=== PATIENT | female | born 1935 | race Caucasian/White ===

== ENCOUNTER 2017-06-04 13:19 | Emergency (ER) | payer MEDICARE, OTHER ==
[2017-06-04 13:55] LABS: BASOPHILS 0.3 % (0-2); EOSINOPHILS 0.6 % (0-7); HEMATOCRIT 39.5 % (36.0-48.0); HEMOGLOBIN 13.6 g/dL (12-16); IMMATURE GRANULOCYTES 0.3 % (0-5); LYMPHOCYTES 16.6 % (15-50); MCHC 34.4 g/dL (31.0-37.0); MEAN PLATELET VOLUME 8.9 fL (7.4-10.4); NEUTROPHILS 73.2 % (40-80); PLATELET COUNT 259 10x3/uL (130-400); RBC 4.39 10x6/uL (4.00-5.40); RDW 12.5 % (11.5-14.5); WBC 6.9 10x3/uL (4.8-10.8)
[2017-06-04 14:12] LABS: ALBUMIN 3.6 g/dL (3.4-5.0); ANION GAP 16.6 mmol/L (8-16); BILIRUBIN - TOTAL 0.49 mg/dL (0.2-1.3); CALCIUM 9.3 mg/dL (8.5-10.1); CARBON DIOXIDE 24.7 mmol/L (21.0-32.0); CREATININE - SERUM 0.9 mg/dL (0.6-1.3); POTASSIUM - SERUM 3.3 mmol/L (3.5-5.1); PROTEIN - SERUM 7.4 g/dL (6.4-8.2)
[2017-06-04 15:13] LABS: APPEARANCE CLEAR (CLEAR); BILIRUBIN NEGATIVE (NEGATIVE); COLOR YELLOW (YELLOW); GLUCOSE NEGATIVE (NEGATIVE); KETONE NEGATIVE (NEGATIVE); NITRITE NEGATIVE (NEGATIVE); PROTEIN NEGATIVE (NEGATIVE); SPECIFIC GRAVITY 1.005 (1.005-1.020); UROBILINOGEN NORMAL (NORMAL)
[2017-08-01 17:04] VITALS: BMI 23.3
== END 2017-06-04 15:52 | disposition home or self-care (01) ==
LOC: D.ER 13:19
PROVIDERS: Emergency Medicine
DX: S39.011A Strain of muscle, fascia and tendon of abdomen, initial encounter (principal); X58.XXXA Exposure to other specified factors, initial encounter; Y93.89 Activity, other specified; Y92.029 Unspecified place in mobile home as the place of occurrence of the external cause; E87.6 Hypokalemia; K59.00 Constipation, unspecified

== ENCOUNTER 2017-06-15 16:18 | Inpatient (IN) | payer MEDICARE, OTHER ==
[~2017-06-15] VITALS: Ht 167.6 cm; Wt 72.7 kg
[2017-06-15] MEDS ORDERED: GLUCOSAMINE & C1 CAP PO (23:32)
[2017-06-15] MEDS ORDERED: CALCIUM 600+D T1 TA1 PO (23:32)
[2017-06-15] MEDS ORDERED: FOLBIC RF TABL1 EACH PO (23:33)
[2017-06-15] MEDS ORDERED: VITAMIN E600 UNIT PO (23:36)
[2017-06-15] MEDS ORDERED: ASCORBIC ACID500 MG (23:37)
[2017-06-15 23:39] VITALS: BP 125/76; Ht 167.6 cm; Wt 72.7 kg
[2017-06-16 00:56] VITALS: BP 143/76
--- NOTE | 2017-06-16 03:48 | NUR ---
ASSESSED AT THE TIME OF ARRIVAL FROM THE ER. SHE IS ALERT AND ORIENTED, ABLAE TO VERBALIZE NEEDS. SHE IS NOT COMPLAINING OF PAIN SINCE SHE CAME UP FROM THE ER. SHE HAS STATED WHEN SHE HAS PAIN IT IS ALL DOWN HER RIGHT LEG. WE WILL GET HER A BSC TO SEE IF SHE WILL BE ABLE TO USE IT WITH HER. ALL CLOTHING HAS BEEN REMOVED AND SHE IS IN A GOWN TO MAKE HER MORE COMFORTABLE. THE BED IS LOW, RAILS UP X'S 2 WITH THE CALL LIGHT AT HAND.
[2017-06-16 04:52] VITALS: BP 132/70
--- NOTE | 2017-06-16 07:10 | NUR ---
REPORT RECEIVED, ASSUMED CARE OF PT. PT RESTING, EASILY AROUSED. L FOREARM IV SALINE LOCKED, DRSG C/D/I. NO NEEDS VOICED AT THIS TIME. BED IN LOWEST POSITION, SIDE RAILS UP X 2, CALL LIGHT WITH REACH.
[2017-06-16 08:36] VITALS: BP 151/79
--- NOTE | 2017-06-16 10:48 | NUR ---
Patient Name: BRENDEN PARDO Admission Status: ER Accout number: [id number] Admission Date: 06-15-2017 : 1935 Admission Diagnosis: Attending: CHRISTOPHER BASHIR Current LOS: 1 Anticipated DC Date: 06-20-2017 Planned Disposition: Home Primary Insurance: MEDICARE A & B Discharge Planning Comments: CM MET WITH PATIENT AND SON (BEATRIZ) REGARDING D/C NEEDS AND PLANS. PATIENT STATED SHE LIVES ALONE AND HER SON WILL DRIVE HER HOME AT DISCHARGE. PATIENT STATED SHE HAS 2 STEPS TO ENTER HOME AND NO STAIRS INSIDE. PATIENT IS INDEPENDENT WITH HER CARE AND HAS A WALKER AT HOME. PATIENTS PCP IS DR. CALVERT AND PHARMACY IS [facility] AT THE [facility]. CM WILL CONTINUE TO FOLLOW PATIENT WITH D/C NEEDS AND PLANS. PATIENTS SON WANTS TO SEE DOCTOR BEFORE DECIDING ON HOME HEATLH. PCP DR. ENRIKE MANN AT [facility] [phone] BEATRIZ (SON) [phone] Chief Transfer And Pumphouse Operator: Amanda Souza Is the patient Alert and Oriented? Yes 0 * How many steps to enter\exit or inside your home? 2 w/rails 0 * PCP DR. CALVERT 0 * [facility] 0 * Preadmission Environment Home Alone 0 * ADLs Independent 0 * Equipment Walker 0 * List name and contact numbers for known caregivers / representatives who currently or will assist patient after discharge: BEATRIZ PARDO (SON) [phone] 0 * Community resources currently utilized None 0 * Additional services required to return to the preadmission environment? Yes 0 * Can the patient safely return to the preadmission environment? Yes 0 * Has this patient been hospitalized within the prior 30 days at any hospital? No 0 Grand Total: 0
[2017-06-16 11:27] LABS: BASOPHILS 0.1 % (0-2); EOSINOPHILS 0.1 % (0-7); HEMATOCRIT 38.6 % (36.0-48.0); IMMATURE GRANULOCYTES 0.9 % (0-5); LYMPHOCYTES 4.4 % (15-50); MCH 30.5 pg (26.0-34.0); MCHC 33.7 g/dL (31.0-37.0); MCV 90.6 fL (80.0-100.0); MEAN PLATELET VOLUME 8.9 fL (7.4-10.4); MONOCYTES 9.5 % (2-11); RBC 4.26 10x6/uL (4.00-5.40); RDW 13.4 % (11.5-14.5); WBC 16.2 10x3/uL (4.8-10.8)
[2017-06-16 11:30] LABS: PLATELET COUNT 433 10x3/uL (130-400)
[2017-06-16 11:41] LABS: ALBUMIN 2.3 g/dL (3.4-5.0); ANION GAP 13.2 mmol/L (8-16); BILIRUBIN - TOTAL 0.86 mg/dL (0.2-1.3); CALCIUM 9.7 mg/dL (8.5-10.1); CARBON DIOXIDE 26.8 mmol/L (21.0-32.0); CREATININE - SERUM 1.1 mg/dL (0.6-1.3); PROTEIN - SERUM 7.3 g/dL (6.4-8.2)
[2017-06-16 12:21] VITALS: BP 135/61
--- NOTE | 2017-06-16 13:49 | NUR ---
NUTRITION MONITORING AND AND EVAL CHART REVIEWED, PT VISIT. ASSESSED AT LOW NUTRITIONAL RISK PER NURSING SCREEN. CHANGED DIET TO REG NO INDICATION OF HEART DZ IN H&P. RD FOLLOWING
--- NOTE | 2017-06-16 15:49 | NUR ---
PT LEFT FLOOR FOR CT
[2017-06-16 15:56] VITALS: BP 105/73
--- NOTE | 2017-06-16 16:08 | NUR ---
PT RETURNED TO FLOOR FROM CT
[2017-06-16 20:00] VITALS: BP 128/62
[2017-06-17] VITALS: BP 107/75
[2017-06-17 04:00] VITALS: BP 125/65
[2017-06-17 07:22] LABS: BASOPHILS 0.1 % (0-2); EOSINOPHILS 0.1 % (0-7); HEMATOCRIT 37.8 % (36.0-48.0); HEMOGLOBIN 12.9 g/dL (12-16); IMMATURE GRANULOCYTES 1.4 % (0-5); LYMPHOCYTES 5.3 % (15-50); MCH 30.5 pg (26.0-34.0); MCHC 34.1 g/dL (31.0-37.0); MCV 89.4 fL (80.0-100.0); MEAN PLATELET VOLUME 8.9 fL (7.4-10.4); MONOCYTES 9.4 % (2-11); NEUTROPHILS 83.7 % (40-80); PLATELET COUNT 434 10x3/uL (130-400); RBC 4.23 10x6/uL (4.00-5.40); RDW 13.2 % (11.5-14.5); WBC 18.2 10x3/uL (4.8-10.8)
[2017-06-17 07:39] LABS: ANION GAP 14.1 mmol/L (8-16); BILIRUBIN - TOTAL 1.31 mg/dL (0.2-1.3); CALCIUM 9.7 mg/dL (8.5-10.1); CARBON DIOXIDE 25.2 mmol/L (21.0-32.0); POTASSIUM - SERUM 3.3 mmol/L (3.5-5.1); PROTEIN - SERUM 6.9 g/dL (6.4-8.2)
--- NOTE | 2017-06-17 08:00 | NUR ---
POTASSIUM 3.3 - GAVE 40 MEQ POTASSIUM TAB PO PER ELECTROLYTE PROTOCOL. RECHECK POTASSIUM FOR 1200. SET PT UP WITH BREAKFAST TRAY. PT C/O RIGHT HIP PAIN 03/09. GAVE MORPHINE 2 MG IV PUSH. NO OTHER NEEDS. WILL CONTINUE TO MONITOR.
[2017-06-17 10:10] VITALS: BP 138/71
[2017-06-17 16:51] VITALS: BP 132/74
--- NOTE | 2017-06-17 18:55 | NUR ---
PATIENT IN BED WITH IV INTACT. NO COMPLAINTS AT THIS TIME. RECIEVED MORPHINE EARLIER FOR PAIN. NOT EATING WELL TODAY. SEEMS TO HAVE A LOT OF PAIN AT TIMES. FAMILY AT BEDSIDE MOST OF THE DAY. PATIENT CALL [facility].
[2017-06-17 20:00] VITALS: BP 132/64; BP 141/69
--- NOTE | 2017-06-17 21:10 | NUR ---
PT C/O RIGHT HIP PAIN 03/09. LEFT FOREARM IV NO LONGER PATENT. RESITED 20G IV TO RIGHT FOREARM AND ADMINISTERED MORPHINE 2MG IV PUSH. REPOSITIONED AND TURNED PT. NO OTHER NEEDS. WILL CONTINUE TO MONITOR.
[2017-06-18] VITALS: BP 138/81; BP 140/69
[2017-06-18 04:00] VITALS: BP 145/58
--- NOTE | 2017-06-18 05:30 | NUR ---
PT CONFUSED THIS SHIFT. HAS TAKEN OFF CLOTHES SEVERAL TIMES. KEEPING PT TURNED TOLERATED. COMPLETE ASSESSMENT PER FLOW-SHEET. WILL CONTINUE TO MONITOR.
[2017-06-18 06:18] LABS: HEMATOCRIT 39.4 % (36.0-48.0); HEMOGLOBIN 12.9 g/dL (12-16); MCH 30.1 pg (26.0-34.0); MCHC 32.7 g/dL (31.0-37.0); MCV 91.8 fL (80.0-100.0); MEAN PLATELET VOLUME 8.8 fL (7.4-10.4); PLATELET COUNT 452 10x3/uL (130-400); RBC 4.29 10x6/uL (4.00-5.40); RDW 13.6 % (11.5-14.5); WBC 21.2 10x3/uL (4.8-10.8)
[2017-06-18 06:50] LABS: ALBUMIN 1.9 g/dL (3.4-5.0); ANION GAP 13.7 mmol/L (8-16); BILIRUBIN - TOTAL 1.52 mg/dL (0.2-1.3); CALCIUM 9.9 mg/dL (8.5-10.1); CARBON DIOXIDE 25.2 mmol/L (21.0-32.0); CREATININE - SERUM 0.9 mg/dL (0.6-1.3); POTASSIUM - SERUM 3.9 mmol/L (3.5-5.1); PROTEIN - SERUM 6.7 g/dL (6.4-8.2)
--- NOTE | 2017-06-18 07:00 | NUR ---
REPORT RECIEVED ASSUMED CARE. PATIENT IN BED WITH IV INTACT. NO COMPLAINTS. CALL LIGHT WITHIN REACH.
[2017-06-18 07:12] LABS: LYMPHOCYTES 6 % (15-50); MONOCYTES 1 % (2-11); NEUTROPHILS 89 % (40-80); PLATELET ESTIMATE INCREASED
--- NOTE | 2017-06-18 08:15 | NUR ---
ASSESSMENT COMPLETE, VS STABLE. PATIENT REFUSES TO EAT BREAKFAST. STRAWBERRY ENSURE GIVEN TO PATIENT. FAMILY AT BEDSIDE. PATIENT IV INTACT. CALL LIGHT WITHIN REACH.
[2017-06-18 08:31] VITALS: BP 124/68
[2017-06-18 11:44] LABS: ERYTHROCYTE SEDIMENTATION RATE 86 mm/hr (0-30)
[2017-06-18 11:47] VITALS: BP 128/67
--- NOTE | 2017-06-18 12:15 | NUR ---
PATIENT SLEEPING WITH EYES CLOSED AT THIS TIME. IV INTACT. REFUSES TO WAKE UP AND EAT LUNCH. CALL LIGHT WITHIN REACH.
--- NOTE | 2017-06-18 13:45 | NUR ---
PATIENT AWAKE AND CONFUSED. IN A LOT OF PAIN. TRIED TO REORIENT PATIENT AND EXPLAIN WHERE SHE IS AND WHY SHE IS HERE. STATED SHE THINKS WE ARE TRYING TO TAKE ADVANTAGE OF HER. EXPLAINED AGAIN THAT SHE IS HERE BECAUSE OF FALLS AND PAIN. PATIENT STATED SHE WANTED TO CALL HER SON. GAVE HER HER PHONE AND PATIENT DIALED THE NUMBER. IV INTACT. EXPLAINED TO PATIENT I WOULD GET HER SOME PAIN MEDS. STATED SHE DIDNT WANT THEM. BA ON. CALL LIGHT WITHIN REACH.
--- NOTE | 2017-06-18 14:30 | NUR ---
PATIENT IN BED CRYING BC SHE IS HURTING. EXPLAINED TO PATIENT I COULD GIVE HER PAIN MEDS. PATIENT AGREED. MORPHINE GIVEN. PATIENT REPOSITIONED. BA ON. CALL LIGHT WITHIN REACH. REFUSED BSCDS.
[2017-06-18 15:51] VITALS: BP 137/80
--- NOTE | 2017-06-18 16:50 | NUR ---
PATIENT IN BED WITH NO COMPLAINTS. STATED BACK IS BETTER. NO CONFUSED ANYMORE. CALL LIGHT WITHIN REACH.
--- NOTE | 2017-06-18 18:00 | NUR ---
PATIENT IV INFILTRATED. REMOVED WITH CATH TIP INTACT. NO COMPLAINTS OF SIGNS OF DISTRESS. STATED BACK PAIN IS FEELING BETTER. CALL LIGHT WITHIN REACH.
--- NOTE | 2017-06-18 18:52 | NUR ---
ANGELO RN IN ROOM TRYING TO START IV AT THIS TIME. PATIENT TOLERATING WITH SMALL AMOUNT OF PAIN. CALL LIGHT WITHIN REACH.
--- NOTE | 2017-06-18 19:30 | NUR ---
PATIENT RESTING IN BED AND DENIES NEEDS AT THIS TIME. BED IN LOWEST POSITION, CALL LIGHT WITHIN REACH, AND BED ALARM ON. ENCOURAGED THE PATIENT TO CALL IF SHE HAS NEEDS.
[2017-06-18 20:00] VITALS: BP 129/66; BP 138/81
[2017-06-19] VITALS: BP 129/66
[2017-06-19 04:00] VITALS: BP 137/81
[2017-06-19 05:48] LABS: BASOPHILS 0.1 % (0-2); EOSINOPHILS 0.2 % (0-7); HEMATOCRIT 36.9 % (36.0-48.0); HEMOGLOBIN 12.3 g/dL (12-16); IMMATURE GRANULOCYTES 5.4 % (0-5); LYMPHOCYTES 5.3 % (15-50); MCH 30.1 pg (26.0-34.0); MCHC 33.3 g/dL (31.0-37.0); MCV 90.2 fL (80.0-100.0); MEAN PLATELET VOLUME 8.9 fL (7.4-10.4); MONOCYTES 7.9 % (2-11); NEUTROPHILS 81.1 % (40-80); PLATELET COUNT 498 10x3/uL (130-400); RBC 4.09 10x6/uL (4.00-5.40); RDW 13.4 % (11.5-14.5); WBC 18.9 10x3/uL (4.8-10.8)
[2017-06-19 05:55] LABS: APPEARANCE CLEAR (CLEAR); BILIRUBIN NEGATIVE (NEGATIVE); COLOR DK YELLOW (YELLOW); GLUCOSE NEGATIVE (NEGATIVE); KETONE NEGATIVE (NEGATIVE); NITRITE NEGATIVE (NEGATIVE); PROTEIN NEGATIVE (NEGATIVE); SPECIFIC GRAVITY 1.015 (1.005-1.020); UROBILINOGEN NORMAL (NORMAL)
[2017-06-19 06:08] LABS: ALBUMIN 1.7 g/dL (3.4-5.0); BILIRUBIN - TOTAL 1.2 mg/dL (0.2-1.3); CARBON DIOXIDE 26.4 mmol/L (21.0-32.0); CREATININE - SERUM 0.9 mg/dL (0.6-1.3); POTASSIUM - SERUM 3.4 mmol/L (3.5-5.1); PROTEIN - SERUM 6.4 g/dL (6.4-8.2)
--- NOTE | 2017-06-19 08:00 | NUR ---
REC'D IN BED AWAKE AND ALERT. RESP EVEN AND UNLABORED WITH NO DISTRESS NOTED. CAN EXPRESS NEEDS AND WANTS. ASSESSMENT COMPLETED. NO C/ONOTED OR VOICED. C/L IN REACH AT BEDSIDE.
[2017-06-19 08:38] VITALS: BP 129/74
--- NOTE | 2017-06-19 10:57 | NUR ---
PT NOTE-PT RESING WITH EYES CLOSED AND RESP EVEN AND UNLABORED. NO FACIAL GRIMACING BOTED. BED ALARM ON FOR SAFETY. CALL LIGHT IN REACH
[2017-06-19 12:38] VITALS: BP 130/76
[2017-06-19 16:16] VITALS: BP 135/72
--- NOTE | 2017-06-19 18:13 | NUR ---
OT NOTE: PT COMPLETED SELF FEEDING WITH TOTAL ASSIST. PT COMPLETED HYGIENE TASK WITH MAX A. PT COMPLETED BED MOB WITH TOTAL ASSIST. THANK YOU, LALA ELDER/Patti
--- NOTE | 2017-06-19 19:55 | NUR ---
ASSISTED PATIENT OFF OF BEDPAN WITH ABHINAV GUEVARA. PATIENT DENIES OTHER NEEDS AT THIS TIME. BED IN LOWEST POSITION, CALL LIGHT WITHIN REACH, AND BED ALARM ON. ENCOURAGED THE PATIENT TO CALL IF SHE HAS NEEDS.
[2017-06-19 23:01] VITALS: BP 130/71
[2017-06-20 01:52] VITALS: BP 135/68
[2017-06-20 06:01] LABS: BASOPHILS 0.4 % (0-2); EOSINOPHILS 0.3 % (0-7); HEMATOCRIT 38.9 % (36.0-48.0); HEMOGLOBIN 12.6 g/dL (12-16); IMMATURE GRANULOCYTES 7.6 % (0-5); MCH 29.9 pg (26.0-34.0); MCHC 32.4 g/dL (31.0-37.0); MEAN PLATELET VOLUME 9.1 fL (7.4-10.4); MONOCYTES 7.3 % (2-11); NEUTROPHILS 77.4 % (40-80); PLATELET COUNT 556 10x3/uL (130-400); RBC 4.21 10x6/uL (4.00-5.40); RDW 13.5 % (11.5-14.5); WBC 17.6 10x3/uL (4.8-10.8)
[2017-06-20 06:07] LABS: MCV 92.4 fL (80.0-100.0)
[2017-06-20 06:31] LABS: ALBUMIN 1.8 g/dL (3.4-5.0); ANION GAP 12.3 mmol/L (8-16); BILIRUBIN - TOTAL 1.31 mg/dL (0.2-1.3); CALCIUM 9.5 mg/dL (8.5-10.1); CARBON DIOXIDE 28.2 mmol/L (21.0-32.0); CREATININE - SERUM 0.9 mg/dL (0.6-1.3); POTASSIUM - SERUM 3.5 mmol/L (3.5-5.1); PROTEIN - SERUM 6.6 g/dL (6.4-8.2)
--- NOTE | 2017-06-20 08:30 | NUR ---
PT STATES SHE DOES NOT LIKE TO EAT ANYTHING RIGHT NOW, AT BED SIDE.
[2017-06-20 08:42] VITALS: BP 139/78
[2017-06-20 11:26] VITALS: BP 151/78
--- NOTE | 2017-06-20 11:48 | NUR ---
REST QUIETLY IN BED, CALL LIGHT IN REACH.
--- NOTE | 2017-06-20 12:31 | NUR ---
Rehab Prescreening Consult recieved and the patient was visited. She was lying in the bed and saying she needed to have a BM. She was confused and disoriented. She denies being in the hospital rather she is here with her 87 yr old mother who has fallen. When attempted to reorient she became frustrated. I am unsure she could follow direction enough to benefit from rehab at this time. Discussed with the CM Amanda Miranda RN. Rehab will continue to follow. Lili Oconnell RN Clinical Liaison, Rehab
--- NOTE | 2017-06-20 12:45 | NUR ---
ASSISTED PT WITH BEDPAN.
--- NOTE | 2017-06-20 15:10 | NUR ---
PT TOOK OFF OXYGEN AND REFUSED TO PUT BACK ON.
[2017-06-20 16:10] VITALS: BP 142/68
--- NOTE | 2017-06-20 17:58 | NUR ---
PT TAKE OUT IV AND COMBATIVE.
--- NOTE | 2017-06-20 18:16 | NUR ---
RESTART IV FOR PT, GOOD BLOOD RETURN, PT TOLERATED WELL.
[2017-06-20 20:00] VITALS: BP 137/61
--- NOTE | 2017-06-20 20:05 | NUR ---
PATIENT RESTING IN BED WITH NO VISIBLE SIGNS OF DISTRESS. REPOSITIONED PATIENT WITH RADHA DAVISON. PATIENT DENIES OTHER NEEDS AT THIS TIME. BED IN LOWEST POSITION, CALL LIGHT WITHIN REACH, AND BED ALARM ON. ENCOURAGED THE PATIENT TO CALL IF SHE HAS NEEDS.
[2017-06-21] VITALS: BP 151/84
[2017-06-21 04:00] VITALS: BP 139/71
[2017-06-21 05:37] LABS: BASOPHILS 0.2 % (0-2); EOSINOPHILS 0.4 % (0-7); HEMATOCRIT 37.6 % (36.0-48.0); HEMOGLOBIN 12.4 g/dL (12-16); IMMATURE GRANULOCYTES 7.6 % (0-5); LYMPHOCYTES 6.9 % (15-50); MCH 30.2 pg (26.0-34.0); MCV 91.5 fL (80.0-100.0); MEAN PLATELET VOLUME 9.1 fL (7.4-10.4); MONOCYTES 7.4 % (2-11); NEUTROPHILS 77.5 % (40-80); PLATELET COUNT 590 10x3/uL (130-400); RBC 4.11 10x6/uL (4.00-5.40); RDW 13.6 % (11.5-14.5); WBC 19.5 10x3/uL (4.8-10.8)
[2017-06-21 06:02] LABS: ALBUMIN 1.7 g/dL (3.4-5.0); ANION GAP 13.9 mmol/L (8-16); BILIRUBIN - TOTAL 1.34 mg/dL (0.2-1.3); CARBON DIOXIDE 23.8 mmol/L (21.0-32.0); CREATININE - SERUM 0.8 mg/dL (0.6-1.3); POTASSIUM - SERUM 3.7 mmol/L (3.5-5.1); PROTEIN - SERUM 6.3 g/dL (6.4-8.2)
[2017-06-21 08:45] VITALS: BP 148/76
--- NOTE | 2017-06-21 09:00 | NUR ---
PT WAS RECEIVED FROM RADHA DAMON. PT IS SITTING UP IN [facility]. SHE OFFERS NO COMPLAINTS. SHE STATES WHEN ALL HER TEST ARE DONE THAT SHE IS GOING HOME. I BELIEVE SHE IS WAITING ON HER ECHO TO BE DONE. GEN- AWAKE AND ALERT- LUNGS- CLEAR. HEART- RRR. ABD- SOFT NT. BS+ EXT. NO EDEMA. GOOD STRENGTH BILATERALLY. SALINE LOCK IS PATENT IN LEFT WRIST. BED IS LOW, SIDE RAILS UP X 2 AND CALL LIGHT IN REACH.
--- NOTE | 2017-06-21 10:00 | NUR ---
PT IS SITTING UP IN CHAIR. OFFERS NO COMPLAINTS. SHE IS READY TO GO HOME.
--- NOTE | 2017-06-21 11:55 | NUR ---
PT IS AT BEDSIDE . 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 I TOLD HER HER SON HAD BEEN HERE BUT HE HAD ERRANDS TO RUN SO HE LEFT. SHE STATES THAT SHE COULD ONLY BE HERE UNTIL 12:30.
--- NOTE | 2017-06-21 12:21 | NUR ---
HER RESIDENTIAL PROGRAM DIRECTOR CAME OUT AND STATED THAT PT IS NOT WANTING TO EAT ANYTHING. SHE ASKED THAT WE GET HER ENSURE ORDERED.
[2017-06-21 12:36] VITALS: BP 146/78
--- NOTE | 2017-06-21 12:54 | NUR ---
NUTRITION F/U CHART REVIEWED. NO PO INTAKE RECENT MEALS. NOW ASSESSED AT NUTRITIONAL RISK R/T DX, LOS, POOR PO INTAKE. NUTRITIONAL NEEDS ASSESSED USING IBW. [id number] KCAL (25-30 KCAL/KG). 59-71 GM PROTEIN (1-1.2 GM/KG) PER DAY. WILL ADD ENSURE TO DIET ORDER, PROVIDE DIET, MONITOR PO INTAKE. RD FOLLOWING
--- NOTE | 2017-06-21 15:14 | NUR ---
Rehab Note- Visited with the patient's son at length about patient. The patient continues to be very confused and her son stated she was very combative yesterday. At this time he does not feel that is appropriate or can participate in the required 3hrs of therapy per day in acute rehab. Discussed at length with ROSARIO Patel of patient needing a SNF placement and the son with assistance with this decision. Thank you for this referral! Catrachita Mcallister RN Clinical Liaison, [facility] Rehab
[2017-06-21 16:47] VITALS: BP 154/76
--- NOTE | 2017-06-21 17:52 | NUR ---
PT IS LYING IN BED. SHE REFUSES TO EAT OR DRINK ANYTHING. BED IS LOW. SIDE RAILS UP X 2 AND CALL LIGHT IN REACH.
[2017-06-21 21:36] VITALS: BP 145/63
--- NOTE | 2017-06-21 21:41 | NUR ---
REC'D. IN BED ALERT BUT REMAINS CONFUSED TO PACE TIME AND SITUATION.BED ARME. ANCELMO CONTINUE TO MONITOR FOR ANY CHGES. AND FOLLOW CURRENT PLAN OF CARE.
--- NOTE | 2017-06-22 02:19 | NUR ---
EYES CLOSED RESPIRATIONS WITH EASE AND UNLABORED. SR UP X2 CALL LIGHT WITHIN REACH.
[2017-06-22 05:28] LABS: BASOPHILS 0.2 % (0-2); EOSINOPHILS 0.5 % (0-7); HEMATOCRIT 37.5 % (36.0-48.0); HEMOGLOBIN 12.3 g/dL (12-16); LYMPHOCYTES 8.4 % (15-50); MCH 29.9 pg (26.0-34.0); MCHC 32.8 g/dL (31.0-37.0); MEAN PLATELET VOLUME 8.8 fL (7.4-10.4); MONOCYTES 6.1 % (2-11); NEUTROPHILS 76.8 % (40-80); PLATELET COUNT 689 10x3/uL (130-400); RBC 4.12 10x6/uL (4.00-5.40); RDW 13.5 % (11.5-14.5); WBC 19.9 10x3/uL (4.8-10.8)
[2017-06-22 06:06] LABS: ALBUMIN 1.7 g/dL (3.4-5.0); ALKALINE PHOSPHATASE 125 U/L (46-116); ALT (SGPT) 38 U/L (10-68); CALC OSMOLALITY 278 mosm/kg (275-300); CALCIUM 9.1 mg/dL (8.5-10.1); CARBON DIOXIDE 23.6 mmol/L (21.0-32.0); CHLORIDE - SERUM 104 mmol/L (98-107); CREATININE - SERUM 0.7 mg/dL (0.6-1.3); GLUCOSE 103 mg/dL (74-106); POTASSIUM - SERUM 3.3 mmol/L (3.5-5.1); PROTEIN - SERUM 6.4 g/dL (6.4-8.2); SODIUM 138 mmol/L (136-145); UREA NITROGEN 22 mg/dL (7-18); eGFR NON AFRICAN AMERICAN 85 mL/min (90-120)
[2017-06-22 06:45] VITALS: BP 162/82
--- NOTE | 2017-06-22 09:02 | NUR ---
PT AOX1 RESP EVEN AND NONLABORED PT DENIES NEEDS AT THIS TIME IV TO RIGHT FOREARM PATENT AND INTACT AT THIS TIME SRX2 BED AT LOWEST SETTING CALL LIGHT WITHIN REACH WILL CONTINUE TO MONITOR
[2017-06-22 09:13] VITALS: BP 132/81
[2017-06-22 12:30] VITALS: BP 148/84
--- NOTE | 2017-06-22 15:32 | NUR ---
INCREASED VANCOMYCIN FREQUENCY TO Q12H. TROUGH TODAY WAS 5.5
[2017-06-22 17:39] VITALS: BP 139/77
--- NOTE | 2017-06-22 23:16 | NUR ---
PT VERY CONFUSED AT THIS TIME. DOES NOT WANT ANYONE TO TOUCH HER. MADE SURE HER CALL LIGHT WAS IN REACH. PT REFUSED TO TALK TO ME. BED IN LOWEST POSITION, MAUDE ALARM IN USE AND TURNED ON. SCD'S OFF, PT REFUSES TO LET US PUT THEM BACK ON AT THIS TIME. WILL CONTINUE WITH PLAN OF CARE.
[2017-06-23] VITALS: BP 150/83
[2017-06-23 04:00] VITALS: BP 143/77
[2017-06-23 07:00] LABS: ALBUMIN 1.8 g/dL (3.4-5.0); ANION GAP 18.7 mmol/L (8-16); BILIRUBIN - TOTAL 0.9 mg/dL (0.2-1.3); CALCIUM 9.5 mg/dL (8.5-10.1); CARBON DIOXIDE 19.5 mmol/L (21.0-32.0); CREATININE - SERUM 0.8 mg/dL (0.6-1.3); POTASSIUM - SERUM 4.2 mmol/L (3.5-5.1)
[2017-06-23 07:12] LABS: BASOPHILS 0.2 % (0-2); EOSINOPHILS 0.8 % (0-7); HEMATOCRIT 39.5 % (36.0-48.0); IMMATURE GRANULOCYTES 9.6 % (0-5); LYMPHOCYTES 7.5 % (15-50); MCHC 32.9 g/dL (31.0-37.0); MEAN PLATELET VOLUME 9.2 fL (7.4-10.4); MONOCYTES 5.9 % (2-11); PLATELET COUNT 748 10x3/uL (130-400); RBC 4.34 10x6/uL (4.00-5.40); RDW 13.6 % (11.5-14.5); WBC 21.7 10x3/uL (4.8-10.8)
--- NOTE | 2017-06-23 07:55 | NUR ---
PT AOX1 SELF. RESP EVEN AND NONLABORED PT DENIES NEEDS AT THIS TIME IV TO RIGHT FOREARM PATENT AND INTACT AT THIS TIME SRX2 BED AT LOWEST POSITION SRX2 BED AT LOWEST POSITION CALL LIGHT WITHIN REACH WILL CONTINUE TO MONITOR
--- NOTE | 2017-06-23 12:12 | NUR ---
CM REASSESSMENT NOTE: REFERRAL SENT TO THE [facility]
--- NOTE | 2017-06-23 21:05 | NUR ---
PT BECAME VERY COMBATIVE WITH STAFF. ATTEMPTING TO HIT AND KICK WHILE TRYING TO GET PT BACK INTO BED. CALLED ER DR LUCIANO. ORDERED 5MG HALDOL IM ONE TIME DOSE AND THEN WAIT TO SEE HOW PT RESPONDS. PT PULLED OUT IV AND REFUSING TO LET ANYONE TOUCH HER TO RESITE IN AT THIS TIME. MAUDE ALARM TURNED ON, WILL CONTINUE TO MONITOR.
[2017-06-24 04:00] VITALS: BP 137/77
[2017-06-24 05:18] LABS: BASOPHILS 0.2 % (0-2); EOSINOPHILS 0.3 % (0-7); HEMATOCRIT 38.7 % (36.0-48.0); HEMOGLOBIN 13.1 g/dL (12-16); IMMATURE GRANULOCYTES 8.2 % (0-5); LYMPHOCYTES 5.4 % (15-50); MCH 30.5 pg (26.0-34.0); MCHC 33.9 g/dL (31.0-37.0); MONOCYTES 5.4 % (2-11); NEUTROPHILS 80.5 % (40-80); PLATELET COUNT 729 10x3/uL (130-400); RDW 13.4 % (11.5-14.5)
[2017-06-24 05:56] LABS: ALBUMIN 1.8 g/dL (3.4-5.0); ANION GAP 14.3 mmol/L (8-16); CALCIUM 9.2 mg/dL (8.5-10.1); CARBON DIOXIDE 21.6 mmol/L (21.0-32.0); CREATININE - SERUM 0.8 mg/dL (0.6-1.3); POTASSIUM - SERUM 3.9 mmol/L (3.5-5.1); PROTEIN - SERUM 6.4 g/dL (6.4-8.2)
[2017-06-24 07:06] VITALS: BP 132/84
--- NOTE | 2017-06-24 08:30 | NUR ---
REC'D IN BED WITH EYES CLOSED EASILY AROUSED WHEN NAME IS CALLED. RESP EVEN AND UNLABORED WITH NO DISTRESS NOTED. ASSESMENT COMPLETED. C/L IN REACH AT BEDSIDE. C/L IN REACH AT BEDSIDE.
[2017-06-24 10:58] VITALS: BP 103/53
--- NOTE | 2017-06-24 14:13 | NUR ---
REHAB PRESCREEN: PT DOENT MEET FOR REHAB CRITERIA, SHE IS UNABLE TO TOLERATE THE REQUIRED AMOUNT OF THERAPY FOR PARICIPATION IN THER REHAB PROGRAM. ALREADY SPOKE WITH SON AND ARE PLANNING DISCHRGE TO [facility]. THANK YOU FOR THIS EVAL. RG BURGER LPN REHAB CLINICIAL LIASION
[2017-06-24 15:02] VITALS: BP 114/60
[2017-06-24 20:00] VITALS: BP 110/56
--- NOTE | 2017-06-24 20:00 | NUR ---
PATIENT RESTING IN BED WITH NO VISIBLE SIGNS OF DISTRESS. BED IN LOWEST POSITION, CALL LIGHT WITHIN REACH, AND BED ALARM ON. ASSISTED PATIENT IN CALLING HER SON BEATRIZ PER HER REQUEST. PATIENT DENIES OTHER NEEDS AT THIS TIME. ADMINISTERED MEDS PER ORDERS AND COMPLETED ASSESSMENT. ENCOURAGED THE PATIENT TO CALL IF SHE HAS FURTHER NEEDS.
[2017-06-25 04:01] LABS: BASOPHILS 0.1 % (0-2); EOSINOPHILS 0.9 % (0-7); HEMATOCRIT 36.3 % (36.0-48.0); IMMATURE GRANULOCYTES 8.6 % (0-5); MCH 30.2 pg (26.0-34.0); MCHC 33.1 g/dL (31.0-37.0); MCV 91.2 fL (80.0-100.0); MEAN PLATELET VOLUME 8.8 fL (7.4-10.4); NEUTROPHILS 73.4 % (40-80); PLATELET COUNT 744 10x3/uL (130-400); RBC 3.98 10x6/uL (4.00-5.40); RDW 13.6 % (11.5-14.5)
[2017-06-25 04:02] LABS: WBC 16.3 10x3/uL (4.8-10.8)
[2017-06-25 04:17] LABS: ALBUMIN 1.8 g/dL (3.4-5.0); BILIRUBIN - TOTAL 0.71 mg/dL (0.2-1.3); CALCIUM 9.5 mg/dL (8.5-10.1); CARBON DIOXIDE 23.7 mmol/L (21.0-32.0); CREATININE - SERUM 0.9 mg/dL (0.6-1.3); PROTEIN - SERUM 6.4 g/dL (6.4-8.2)
[2017-06-25 04:18] LABS: ANION GAP 11.6 mmol/L (8-16); POTASSIUM - SERUM 3.3 mmol/L (3.5-5.1)
--- NOTE | 2017-06-25 07:50 | NUR ---
LYING IN BED EYES OPEN RESTING QUIETLY. ALERT AND ORIENTED TO SELF. PLEASANTLY CONFUSED. DENIES ANY PAIN. CALL LIGHT AND PERSONAL ITEMS WITHIN REACH, BED LOW AND SR X3. WILL CONTINUE TO MONITOR
[2017-06-25 08:54] VITALS: BP 117/67
--- NOTE | 2017-06-25 16:40 | NUR ---
LYING IN BED EYES CLOSED RESTING QUIELTY. NO S/SX OF ACUTE DISTRESS. CALL LIGHT AND PERSONAL ITEMS WITHIN REACH, BED LOW AND ALARM ON. WILL CONTINUE TO MONITOR
[2017-06-25 20:00] VITALS: BP 140/93
--- NOTE | 2017-06-25 22:00 | NUR ---
IV TO RIGHT FA WITH SLIGHT REDNESS. ATTEMPTED TO RESITE X3 WITH NO SUCCESS.
--- NOTE | 2017-06-26 02:00 | NUR ---
IV TO RIGHT FA NO LONGER IN UPON ENTERING ROOM. JEREMY GARCIA ATTEMPTED X1 TO RESITE.
[2017-06-26 04:00] VITALS: BP 122/85
--- NOTE | 2017-06-26 04:50 | NUR ---
IV SITED TO RIGHT HAND/WRIST AREA. 22 GAUGE X2 STICKS.
[2017-06-26 05:00] LABS: BASOPHILS 0.2 % (0-2); EOSINOPHILS 1.1 % (0-7); HEMATOCRIT 34.4 % (36.0-48.0); HEMOGLOBIN 11.4 g/dL (12-16); IMMATURE GRANULOCYTES 6.1 % (0-5); LYMPHOCYTES 9.3 % (15-50); MCH 30.2 pg (26.0-34.0); MCHC 33.1 g/dL (31.0-37.0); MEAN PLATELET VOLUME 8.7 fL (7.4-10.4); NEUTROPHILS 76.3 % (40-80); PLATELET COUNT 749 10x3/uL (130-400); RBC 3.78 10x6/uL (4.00-5.40); RDW 13.6 % (11.5-14.5); WBC 16.7 10x3/uL (4.8-10.8)
[2017-06-26 05:18] LABS: ALBUMIN 1.8 g/dL (3.4-5.0); ANION GAP 13.4 mmol/L (8-16); BILIRUBIN - TOTAL 0.66 mg/dL (0.2-1.3); CARBON DIOXIDE 22.2 mmol/L (21.0-32.0); CREATININE - SERUM 0.8 mg/dL (0.6-1.3); POTASSIUM - SERUM 3.6 mmol/L (3.5-5.1); PROTEIN - SERUM 6.3 g/dL (6.4-8.2)
--- NOTE | 2017-06-26 07:45 | NUR ---
REC'D IN BED AWAKE AND ALERT WITH NOTED CONFUSION. RESP EVEN AND UNLABORED WITH NO DISTRESS NOTED. CAN EXPRESS NEEDS AND WANTS. INCONT AT TIMES WITH DOC CARE GIVEN PRN. ASSESSMENT COMPLETED. C/L IN REACH AT BEDSIDE.
[2017-06-26 08:49] VITALS: BP 130/77
[2017-06-26 12:16] VITALS: BP 157/85
--- NOTE | 2017-06-26 15:35 | NUR ---
NUTRITION F/U CHART REVIEWED, PT VISIT X2. POOR INTAKE MEALS. IS DRINKING MOST OF ENSURE WITH MEALS. ENCOURAGED PT TO IMPROVE PO INTAKE. RD FOLLOWING
[2017-06-26 16:45] VITALS: BP 124/71
--- NOTE | 2017-06-26 19:40 | NUR ---
RECIEVED SHIFT REPORT. PT IS LYING IN BED. PT IS ORIENTED TO SELF ONLY AT THIS TIME. IV IS PATENT AND FLUIDS RUNNING PER ORDER. PT REQUIRES SOME ASSISTANCE TURNING IN BED FOR COMFORT AND SKIN CARE. PT DENIES ANY PAIN AT THIS TIME. NO NEEDS ARE VERBALIZED AT THIS TIME. WILL CONTINUE TO MONITOR. SIDE RAILS ARE UP X 2. BED IS IN LOWEST POSITIN. BED ALARM IS ON FOR SAFETY. CALL LIGHT IS WITHIN REACH.
[2017-06-26 20:00] VITALS: BP 112/635
--- NOTE | 2017-06-26 20:21 | NUR ---
SHIFT ASSESSMENT COMPLETED. NIGHT MEDS GIVEN WITH NO PROBLEMS. NO NEEDS ARE VOICED. WILL MONITOR. SIDE RAILS X 2. BED LOW. BED ALARM ON. CALL LIGHT IN REACH.
[2017-06-27 04:00] VITALS: BP 140/82
[2017-06-27 05:48] LABS: BASOPHILS 0.2 % (0-2); EOSINOPHILS 1.2 % (0-7); HEMOGLOBIN 11.3 g/dL (12-16); LYMPHOCYTES 11.4 % (15-50); MCHC 33.2 g/dL (31.0-37.0); MCV 90.2 fL (80.0-100.0); MEAN PLATELET VOLUME 9.3 fL (7.4-10.4); MONOCYTES 7.6 % (2-11); NEUTROPHILS 73.6 % (40-80); PLATELET COUNT 658 10x3/uL (130-400); RBC 3.77 10x6/uL (4.00-5.40); RDW 13.7 % (11.5-14.5); WBC 13.7 10x3/uL (4.8-10.8)
[2017-06-27 06:01] LABS: ALBUMIN 1.8 g/dL (3.4-5.0); ANION GAP 13.1 mmol/L (8-16); BILIRUBIN - TOTAL 0.59 mg/dL (0.2-1.3); CARBON DIOXIDE 23.4 mmol/L (21.0-32.0); CREATININE - SERUM 0.9 mg/dL (0.6-1.3); POTASSIUM - SERUM 3.5 mmol/L (3.5-5.1); PROTEIN - SERUM 6.1 g/dL (6.4-8.2)
--- NOTE | 2017-06-27 07:28 | NUR ---
VANCOMYCIN TROUGH WAS 33, ROUGHLY 9 HOURS POST DOSE. WILL HOLD THIS MORNINGS DOSE. ORDERED A TROUGH FOR 1999 TODAY, IF <20 WILL GIVE THE LAST SCHEDULED DOSE OF VANCOMYCIN AT 2100 TO COMPLETE HER 7 DAYS OF THERAPY
--- NOTE | 2017-06-27 07:30 | NUR ---
PT WAS RECEIVED THIS AM RESTING IN BED. SHE IS AWAKE. SHE IS TALKING ABOUT SOMETHING WITH THE RED CROSS. APPEARS A LITTLE CONFUSED. LUNGS- SIT SOME WHEEZING NOTED BILATERALLY. HEAR- RRR. ABD- SOFT, NT, BS+. EXT- NO EDEMA LE. SCD'S INTACT. IV PATENT R HAND. WITH NS AT 10 INFUSING. BED IS LOW, SIDE RAILS UP X 2 AND CALL LIGHT IN REACH.
[2017-06-27 08:40] VITALS: BP 133/70
--- NOTE | 2017-06-27 09:32 | NUR ---
PT IS SLEEPING. AWAKENED TO GIVE MEDS.
--- NOTE | 2017-06-27 10:42 | NUR ---
PT IS SLEEPING. BED IS LOW. SIDE RAILS UP X 2 AND CALL LIGHT IN REACH. RESPIRATORY THERAPY IS HERE TO SEE PT.
--- NOTE | 2017-06-27 12:30 | NUR ---
TRIED TO FEED PT LUNCH. SHE WOULD NOT EAT. SHE WOULD JUST NOT TAKE A BITE OR SPIT IT OUT.
[2017-06-27 12:45] VITALS: BP 135/76
--- NOTE | 2017-06-27 15:02 | NUR ---
CM REASSESSMENT NOTE: PATIENT IS DISCHARGING TO THE [facility] TODAY BY FACILITY VAN TO A SKILLED BED. PATIENTS SON (BEATRIZ) HAS BEEN NOTIFIED.
[2017-06-27] MEDS ORDERED: ULTRAM50 MG PO (15:09)
--- NOTE | 2017-06-27 16:17 | NUR ---
PT IS BEING DISCHARGED TO THE [facility]. PRISON CERTIFIED ALCOHOL DRUG COUNSELOR PICKED HER UP. DISCHARGE INSTRUCTIONS DISCUSSED. HANDOUTS,FU APPT AND PRESCRIPTION GIVEN FOR TRAMADOL.
--- NOTE | 2017-06-28 11:38 | CN ---
PATIENT NAME:BRENDEN CONTEH MEDICAL RECORD: [id number] : 31 LOCATION:[address] [address] ADMIT DATE: 06/15/17 ACCOUNT: [id number] CONSULTING PHYSICIAN: RAEGAN ALFONSO MD REFERRING PHYSICIAN: CHRISTOPHER BASHIR MD DATE OF CONSULTATION: 06/22/2017 CONSULT REQUESTING PHYSICIAN: Neptali Gutierrez MD REASON FOR CONSULTATION: Bilateral lower lobe pneumonia and leukocytosis. HISTORY OF PRESENT ILLNESS: Ms. Conteh is an 81-year-old female who was brought into the hospital with right hip pain. There was no fracture. The patient states she is congested in her chest. She has cough without much sputum production. There are no fever or chills. No night sweats. The patient had a chest radiograph which showed infiltrate. REVIEW OF THE SYSTEMS: As in history of present illness. PAST MEDICAL HISTORY: 1. Gastroesophageal reflux disease. 2. Constipation. PAST SURGICAL HISTORY: 1. She had T&A in the past. 2. Left knee replaced. ALLERGIES: There are no known drug allergies. PRESENT MEDICATIONS: She is on cefepime IV and vancomycin IV. Her all other medications are reviewed. PERSONAL AND SOCIAL HISTORY: The patient is nonsmoker and nondrinker. FAMILY HISTORY: Significant for cancer in her parents and siblings. PHYSICAL EXAMINATION: GENERAL: Now, the patient is lying comfortably in bed. She is not in acute distress. VITAL SIGNS: The blood pressure is 148/84, pulse is 84, respirations 14, temperature 99, and SpO2 is 96% on room air. HEENT: Conjunctivae are pink. Sclerae nonicteric. NECK: Supple. No JVD. CHEST: There are bibasilar crackles. No wheezing. HEART: Rhythm regular. Normal sound. No murmur. ABDOMEN: Abdomen is soft. Bowel sounds present. No hepatosplenomegaly. RECTAL: Deferred. EXTREMITIES: No cyanosis. No clubbing. No pedal edema. SKIN: The skin is warm. Normal turgor. CENTRAL NERVOUS SYSTEM: The patient is awake and alert. There are no obvious cranial nerve abnormalities. The gait was not tested. LABORATORY DATA: CBC; WBC is 19.9, hemoglobin is 12.3, hematocrit is 37.5, and platelet count is 689. Chemistry; sodium 138, potassium 3.3, BUN is 22, creatinine 0.7, and glucose 103. CONSULT REPORT [id number] BRENDEN CONTEH IMPRESSION: 1. Pneumonia, bilateral lower lobe, most likely hospital-acquired pneumonia. I would doubt aspiration. 2. Leukocytosis. 3. Gastroesophageal reflux disease. 4. Right hip pain. 5. Hypokalemia. 6. Thrombocytosis. RECOMMENDATION: 1. Continue cefepime and vancomycin. I will add Levaquin for GNR. Mucinex. 2. Flutter valve q. 2 hourly when awake. 3. Followup labs and chest radiograph. 4. DVT prophylaxis. Dr. Gutierrez, thank you for involving me in the care of Ms. Conteh. TRANSINT:[id number] Voice Confirmation ID: [id number] DOCUMENT ID: [id number] RAEGAN ALFONSO MD at 1138 CC: NEPTALI GUTIERREZ MD [id number] DICTATION DATE: 06/22/17 1455 SAND MILL OPERATOR CORE SAND: 06/22/17 1626 DIS IN 06/27/17 [id number] [place] [address]
== END 2017-06-27 16:53 | DRG 604 ==
LOC: D.ER 16:18 → D.MS 22:30
PROVIDERS: Family Medicine; Family Medicine Adult Medicine; Internal Medicine Hematology & Oncology; Orthopaedic Surgery; ADMIT Emergency Medicine
DX: S70.11XA Contusion of right thigh, initial encounter (principal); J18.9 Pneumonia, unspecified organism; G93.41 Metabolic encephalopathy; J98.11 Atelectasis; X58.XXXA Exposure to other specified factors, initial encounter; M25.552 Pain in left hip; M79.661 Pain in right lower leg; K21.9 Gastro-esophageal reflux disease without esophagitis; K59.00 Constipation, unspecified; E87.6 Hypokalemia; D47.3 Essential (hemorrhagic) thrombocythemia

== ENCOUNTER 2017-07-06 11:07 | Emergency (ER) | payer MEDICARE, OTHER ==
[2017-06-15 23:39] VITALS: BMI 25.8
[~2017-07-06 11:07] MED LIST: ASCORBIC ACID500 MG; CALCIUM 600+D T1 TA1 PO; FOLBIC RF TABL1 EACH PO; GLUCOSAMINE & C1 CAP PO; ULTRAM50 MG PO; VITAMIN E600 UNIT PO
[2017-07-06 12:19] LABS: LYMPHOCYTES 20.8 % (15-50); MCH 30.7 pg (26.0-34.0); MCHC 32.4 g/dL (31.0-37.0); MCV 94.6 fL (80.0-100.0); MEAN PLATELET VOLUME 8.1 fL (7.4-10.4); NEUTROPHILS 71.1 % (40-80); PLATELET COUNT 435 10x3/uL (130-400); RBC 3.91 10x6/uL (4.00-5.40); RDW 13.9 % (11.5-14.5); WBC 7.6 10x3/uL (4.8-10.8)
[2017-07-06 12:28] LABS: ALBUMIN 2.4 g/dL (3.4-5.0); ALKALINE PHOSPHATASE 104 U/L (46-116); ALT (SGPT) 17 U/L (10-68); BILIRUBIN - TOTAL 0.53 mg/dL (0.2-1.3); CALC OSMOLALITY 290 mosm/kg (275-300); CALCIUM 9.6 mg/dL (8.5-10.1); CARBON DIOXIDE 26.1 mmol/L (21.0-32.0); CHLORIDE - SERUM 105 mmol/L (98-107); CREATINE KINASE 34 UL (21-215); CREATININE - SERUM 1.4 mg/dL (0.6-1.3); GLUCOSE 89 mg/dL (74-106); PRO BNP 470 pg/mL (0-450); PROTEIN - SERUM 6.7 g/dL (6.4-8.2); SODIUM 142 mmol/L (136-145); UREA NITROGEN 39 mg/dL (7-18); eGFR NON AFRICAN AMERICAN 38 mL/min (90-120)
[2017-07-06 12:29] LABS: TROPONIN-I < 0.017 ng/mL (0.000-0.060)
[2017-07-06 13:17] LABS: APPEARANCE HAZY (CLEAR); BILIRUBIN NEGATIVE (NEGATIVE); COLOR YELLOW (YELLOW); GLUCOSE NEGATIVE (NEGATIVE); KETONE NEGATIVE (NEGATIVE); NITRITE NEGATIVE (NEGATIVE); PROTEIN NEGATIVE (NEGATIVE); UROBILINOGEN NORMAL (NORMAL)
[2017-07-06 13:18] LABS: BACTERIA FEW /hpf (NONE SEEN); EPITHELIAL CELLS 0-5 /hpf (0-5); RED CELLS - URINE OCC /hpf (0-5); WHITE CELLS - URINE 0-5 /hpf (0-5); YEAST >1+ /hpf (NONE SEEN)
[2017-07-06 13:19] LABS: HYALINE CAST OCC /lpf (NONE SEEN)
[2017-07-06 13:20] LABS: INR 1.24 (0.85-1.17); PROTIME 15.2 SECONDS (11.6-15.0)
[2017-07-06 13:23] LABS: UDS - AMPHET NEGATIVE QUAL (NEGATIVE); UDS - BARB NEGATIVE QUAL (NEGATIVE); UDS - BENZO NEGATIVE QUAL (NEGATIVE); UDS - COCAINE NEGATIVE QUAL (NEGATIVE); UDS - OPIATE POSITIVE QUAL (NEGATIVE); UDS - PCP NEGATIVE QUAL (NEGATIVE); UDS - THC NEGATIVE QUAL (NEGATIVE)
== END 2017-07-06 16:18 ==
LOC: D.ER 11:07
PROVIDERS: Family Medicine; Nurse Practitioner Family
DX: R53.1 Weakness (principal); E86.0 Dehydration; N39.0 Urinary tract infection, site not specified

== ENCOUNTER 2017-07-26 23:07 | Inpatient (IN) | payer MEDICARE, OTHER ==
[~2017-07-26] VITALS: Ht 167.6 cm; Wt 65.8 kg
--- NOTE | ~2017-07-26 | CN ---
PATIENT NAME:BRENDEN CONTEH MEDICAL RECORD: [id number] : 31 LOCATION:[address] ADMIT DATE: 07/27/17 ACCOUNT: [id number] CONSULTING PHYSICIAN: RAEGAN ALFONSO MD REFERRING PHYSICIAN: HARDY MALDONADO MD DATE OF CONSULTATION: 07/27/2017 CONSULT REQUESTING PHYSICIAN: Hardy Maldonado MD REASON FOR CONSULTATION: Pneumonia, acute hypoxic respiratory failure, and mental status changes. HISTORY OF PRESENT ILLNESS: Ms. Conteh is an 81-year-old female who was hospitalized in the last week of May with pneumonia and shortness of breath. She was in the [facility], brought back with shortness of breath, mental status changes, and dehydration. Workup showed she had pneumonia and jtpmp-ce-qmqfehe renal failure, which is prerenal. REVIEW OF SYSTEMS: As in history of present illness. PAST MEDICAL HISTORY: 1. Gastroesophageal reflux disease. 2. Constipation. 3. Pneumonia. PAST SURGICAL HISTORY: 1. She had a T&A in the past. 2. Left knee replacement. ALLERGIES: There are no known drug allergies. PRESENT MEDICATIONS: Vartopia was reviewed. PERSONAL SOCIAL HISTORY: The patient is a nonsmoker, nondrinker. FAMILY HISTORY: Significant for cancer in parents and siblings. PHYSICAL EXAMINATION: GENERAL: Now, the patient is lying comfortably. She is not in acute distress, but the patient is very lethargic. VITAL SIGNS: The blood pressure is 109/54, pulse is 76, respiration is 18, temperature 97.7, and SPO2 is 92% on nasal cannula. HEENT: Conjunctivae pink. Sclerae nonicteric. NECK: Neck is supple. No JVD. CHEST: The chest excursion is minimal on both sides. There are basal crackles. No wheeze. HEART: Regular. Normal sound. No murmur. ABDOMEN: Abdomen is soft. Bowel sounds present. No hepatosplenomegaly. RECTAL: Deferred. EXTREMITIES: No cyanosis, no clubbing, no pedal edema. SKIN: The skin is warm, normal turgor. CENTRAL NERVOUS SYSTEM: The patient is sleepy, but she opens eyes by calling. There is no obvious cranial nerve abnormality. CHEST RADIOGRAPH: There is infiltrate in left lower lobe. CONSULT REPORT [id number] BRENDEN CONTEH LABORATORY DATA: CBC: The WBC is 26.5, hemoglobin 13.6, hematocrit 41.3, the platelet count is 404. Chemistry: Sodium 145, potassium 3.2, BUN is 88, creatinine 1.6, and glucose 116. Liver enzymes within normal range. IMPRESSION: 1. Acute mental status changes, most likely secondary to metabolic encephalopathy and sepsis. 2. Acute hypoxic respiratory failure and left lower lobe pneumonia. 3. Left pleural effusion, probably parapneumonic. 4. Leukocytosis. 5. Dehydration. 6. Acute renal failure. 7. Hypokalemia. RECOMMENDATION: 1. Discontinue Rocephin and Zithromax. Start on Levaquin, cefepime, and vancomycin IV. 2. Fluid resuscitation. 3. Followup on the blood culture and chest x-ray and labs. Dr. Maldonado, thank you for involving me in the care of Ms. Conteh. TRANSINT:[id number] Voice Confirmation ID: [id number] DOCUMENT ID: [id number] RAEGAN ALFONSO MD CC: HARDY MALDONADO MD [id number] DICTATION DATE: 07/27/17 1607 MAIL OFFICER: 07/27/17 1652 ADM IN [facility] [address] [place] [address]
[2017-07-27 00:01] LABS: HEMATOCRIT 41.3 % (36.0-48.0); HEMOGLOBIN 13.6 g/dL (12-16); MCH 28.8 pg (26.0-34.0); MCHC 32.9 g/dL (31.0-37.0); MCV 87.3 fL (80.0-100.0); MEAN PLATELET VOLUME 8.8 fL (7.4-10.4); PLATELET COUNT 404 10x3/uL (130-400); RBC 4.73 10x6/uL (4.00-5.40); WBC 26.5 10x3/uL (4.8-10.8)
[2017-07-27 00:18] LABS: ANION GAP 14.7 mmol/L (8-16); BILIRUBIN - TOTAL 0.6 mg/dL (0.2-1.3); CALCIUM 9.9 mg/dL (8.5-10.1); CARBON DIOXIDE 31.5 mmol/L (21.0-32.0); CREATININE - SERUM 1.6 mg/dL (0.6-1.3); MAGNESIUM - SERUM 2.3 mg/dL (1.8-2.4); POTASSIUM - SERUM 3.2 mmol/L (3.5-5.1); PROTEIN - SERUM 7.2 g/dL (6.4-8.2)
[2017-07-27 00:45] LABS: LYMPHOCYTES 3 % (15-50); MONOCYTES 4 % (2-11); NEUTROPHILS 89 % (40-80); PLATELET ESTIMATE INCREASED
[2017-07-27 01:27] LABS: APPEARANCE CLEAR (CLEAR); BILIRUBIN NEGATIVE (NEGATIVE); COLOR YELLOW (YELLOW); GLUCOSE NEGATIVE (NEGATIVE); KETONE NEGATIVE (NEGATIVE); NITRITE NEGATIVE (NEGATIVE); PROTEIN 1+ mg/dL (NEGATIVE); SPECIFIC GRAVITY 1.015 (1.005-1.020); UROBILINOGEN NORMAL (NORMAL)
[2017-07-27 01:28] LABS: BACTERIA FEW /hpf (NONE SEEN); EPITHELIAL CELLS 0-5 /hpf (0-5); HYALINE CAST 0-5 /lpf (NONE SEEN); RED CELLS - URINE 0-5 /hpf (0-5); WHITE CELLS - URINE 0-5 /hpf (0-5); YEAST >1+ /hpf (NONE SEEN)
[2017-07-27 12:04] LABS: BASOPHILS 0.2 % (0-2); EOSINOPHILS 0 % (0-7); HEMATOCRIT 31.7 % (36.0-48.0); HEMOGLOBIN 10.5 g/dL (12-16); IMMATURE GRANULOCYTES 3.3 % (0-5); MCH 29.5 pg (26.0-34.0); MCHC 33.1 g/dL (31.0-37.0); MEAN PLATELET VOLUME 9.4 fL (7.4-10.4); MONOCYTES 3.8 % (2-11); NEUTROPHILS 87.7 % (40-80); PLATELET COUNT 249 10x3/uL (130-400); RBC 3.56 10x6/uL (4.00-5.40); RDW 15.2 % (11.5-14.5); WBC 25.2 10x3/uL (4.8-10.8)
[2017-07-27 15:28] VITALS: BMI 23.4
[2017-07-27] MEDS ORDERED: K-TAB10 MEQ PO (17:06)
[2017-07-27] MEDS ORDERED: SENNA LAXATIVE8.6 MG PO (17:06)
[2017-07-27] MEDS ORDERED: ZINC OXIDE 20 %30 GM TOPICAL (17:09)
[2017-07-28 06:19] LABS: BASOPHILS 0.1 % (0-2); EOSINOPHILS 0 % (0-7); HEMATOCRIT 29.3 % (36.0-48.0); HEMOGLOBIN 9.4 g/dL (12-16); IMMATURE GRANULOCYTES 5.3 % (0-5); LYMPHOCYTES 7.2 % (15-50); MCH 28.8 pg (26.0-34.0); MCHC 32.1 g/dL (31.0-37.0); MCV 89.9 fL (80.0-100.0); MEAN PLATELET VOLUME 9.3 fL (7.4-10.4); MONOCYTES 3.7 % (2-11); NEUTROPHILS 83.7 % (40-80); PLATELET COUNT 234 10x3/uL (130-400); RBC 3.26 10x6/uL (4.00-5.40); RDW 15.4 % (11.5-14.5)
[2017-07-28 06:44] LABS: ALBUMIN 1.5 g/dL (3.4-5.0); BILIRUBIN - TOTAL 0.43 mg/dL (0.2-1.3); CALCIUM 7.9 mg/dL (8.5-10.1); CARBON DIOXIDE 30.4 mmol/L (21.0-32.0)
[2017-07-28 07:11] LABS: CREATININE - SERUM 1.1 mg/dL (0.6-1.3)
[2017-07-28 07:12] LABS: ANION GAP 9.3 mmol/L (8-16); POTASSIUM - SERUM 2.7 mmol/L (3.5-5.1); PROTEIN - SERUM 5.2 g/dL (6.4-8.2)
[2017-07-28 07:49] VITALS: BP 120/60
[2017-07-28 11:23] VITALS: BP 123/49
[2017-07-28 12:51] VITALS: BMI 23.4
[2017-07-28 13:26] VITALS: Ht 167.6 cm; Wt 65.8 kg
[2017-07-28 16:45] VITALS: BP 119/68
[2017-07-28 20:45] VITALS: BP 113/84
[2017-07-29 00:30] VITALS: BP 121/76
[2017-07-29 07:56] LABS: BASOPHILS 0.3 % (0-2); EOSINOPHILS 0 % (0-7); HEMATOCRIT 30.9 % (36.0-48.0); HEMOGLOBIN 10.1 g/dL (12-16); IMMATURE GRANULOCYTES 7.5 % (0-5); LYMPHOCYTES 8.1 % (15-50); MCH 29.1 pg (26.0-34.0); MCHC 32.7 g/dL (31.0-37.0); MEAN PLATELET VOLUME 9.8 fL (7.4-10.4); MONOCYTES 3.6 % (2-11); NEUTROPHILS 80.5 % (40-80); PLATELET COUNT 262 10x3/uL (130-400); RBC 3.47 10x6/uL (4.00-5.40); RDW 15.4 % (11.5-14.5); WBC 20.4 10x3/uL (4.8-10.8)
[2017-07-29 08:07] VITALS: BP 133/76
[2017-07-29 08:11] LABS: ALBUMIN 1.5 g/dL (3.4-5.0); ANION GAP 14.8 mmol/L (8-16); BILIRUBIN - TOTAL 0.54 mg/dL (0.2-1.3); CARBON DIOXIDE 23.4 mmol/L (21.0-32.0); POTASSIUM - SERUM 3.2 mmol/L (3.5-5.1); PROTEIN - SERUM 5.4 g/dL (6.4-8.2)
[2017-07-29 11:22] VITALS: BP 130/74
[2017-07-29 15:25] VITALS: BP 160/82
[2017-07-30] VITALS: BP 95/61
[2017-07-30 05:38] LABS: BASOPHILS 0.2 % (0-2); EOSINOPHILS 0.1 % (0-7); HEMATOCRIT 27.4 % (36.0-48.0); HEMOGLOBIN 9.2 g/dL (12-16); LYMPHOCYTES 8.4 % (15-50); MCH 29.2 pg (26.0-34.0); MCHC 33.6 g/dL (31.0-37.0); MEAN PLATELET VOLUME 9.4 fL (7.4-10.4); MONOCYTES 3.8 % (2-11); NEUTROPHILS 81.5 % (40-80); PLATELET COUNT 234 10x3/uL (130-400); RBC 3.15 10x6/uL (4.00-5.40); RDW 15.4 % (11.5-14.5); WBC 18.4 10x3/uL (4.8-10.8)
[2017-07-30 06:20] VITALS: BP 124/67
[2017-07-30 06:20] LABS: ALBUMIN 1.5 g/dL (3.4-5.0); BILIRUBIN - TOTAL 0.58 mg/dL (0.2-1.3); CALCIUM 7.7 mg/dL (8.5-10.1); CREATININE - SERUM 0.9 mg/dL (0.6-1.3); MAGNESIUM - SERUM 1.4 mg/dL (1.8-2.4); PHOSPHOROUS 1.7 mg/dL (2.5-4.9); PROTEIN - SERUM 5.2 g/dL (6.4-8.2)
[2017-07-30 06:27] LABS: ANION GAP 15.3 mmol/L (8-16); POTASSIUM - SERUM 2.3 mmol/L (3.5-5.1)
[2017-07-30 08:12] VITALS: BP 132/70
[2017-07-30 11:30] VITALS: BP 133/70
[2017-07-30 15:40] VITALS: BP 128/77
[2017-07-30 21:52] VITALS: BP 151/89
[2017-07-31 00:52] VITALS: BP 124/82
[2017-07-31 07:25] VITALS: BP 153/89
[2017-07-31 08:00] VITALS: BP 117/85
[2017-07-31 12:03] VITALS: BP 132/74
[2017-07-31 20:00] VITALS: BP 111/63
[2017-08-01 00:30] VITALS: BP 111/70
[2017-08-01 04:30] VITALS: BP 134/85
[2017-08-01 06:07] LABS: BASOPHILS 0.2 % (0-2); EOSINOPHILS 0 % (0-7); HEMATOCRIT 29.2 % (36.0-48.0); HEMOGLOBIN 9.6 g/dL (12-16); IMMATURE GRANULOCYTES 4.4 % (0-5); LYMPHOCYTES 10.9 % (15-50); MCH 29.2 pg (26.0-34.0); MCHC 32.9 g/dL (31.0-37.0); MCV 88.8 fL (80.0-100.0); MONOCYTES 4.3 % (2-11); NEUTROPHILS 80.2 % (40-80); PLATELET COUNT 260 10x3/uL (130-400); RBC 3.29 10x6/uL (4.00-5.40); RDW 16.1 % (11.5-14.5); WBC 15.7 10x3/uL (4.8-10.8)
[2017-08-01 06:59] LABS: ALBUMIN 1.7 g/dL (3.4-5.0); BILIRUBIN - TOTAL 0.62 mg/dL (0.2-1.3); CARBON DIOXIDE 24.1 mmol/L (21.0-32.0); CREATININE - SERUM 0.9 mg/dL (0.6-1.3); PROTEIN - SERUM 5.9 g/dL (6.4-8.2); VANCOMYCIN - RANDOM 19.9 ug/mL (10.0-20.0)
[2017-08-01 07:03] LABS: ANION GAP 20.9 mmol/L (8-16)
[2017-08-01 08:41] VITALS: BP 134/81
[2017-08-01 11:43] VITALS: BP 127/73
== END 2017-08-01 16:30 | disposition hospice, inpatient (51) | DRG 871 ==
LOC: D.ER 23:07 → D.M2 07-27 07:26 → D.SDCHOLD 07-27 07:26 → D.M2 07-27 14:19
PROVIDERS: Emergency Medicine; Family Medicine; Internal Medicine Pulmonary Disease
DX: A41.9 Sepsis, unspecified organism (principal); J96.01 Acute respiratory failure with hypoxia; G93.41 Metabolic encephalopathy; J15.6 Pneumonia due to other Gram-negative bacteria; J13 Pneumonia due to Streptococcus pneumoniae; E43 Unspecified severe protein-calorie malnutrition; N17.9 Acute kidney failure, unspecified; J98.11 Atelectasis; E87.0 Hyperosmolality and hypernatremia; I70.268 Atherosclerosis of native arteries of extremities with gangrene, other extremity; E86.0 Dehydration; F03.90 Unspecified dementia, unspecified severity, without behavioral disturbance, psychotic disturbance, mood disturbance, and anxiety; K21.9 Gastro-esophageal reflux disease without esophagitis; K59.09 Other constipation; E87.6 Hypokalemia; R39.2 Extrarenal uremia; D64.9 Anemia, unspecified; J98.01 Acute bronchospasm; E83.39 Other disorders of phosphorus metabolism; E83.42 Hypomagnesemia; Z68.23 Body mass index [BMI] 23.0-23.9, adult; D47.3 Essential (hemorrhagic) thrombocythemia

== ENCOUNTER 2017-08-01 16:42 | Inpatient (IN) | payer OTHER ==
[~2017-08-01] VITALS: Ht 162.6 cm; Wt 64.9 kg
[~2017-08-01 16:42] MED LIST changes: +K-TAB10 MEQ PO; +SENNA LAXATIVE8.6 MG PO; +ZINC OXIDE 20 %30 GM TOPICAL
[2017-08-01 17:04] VITALS: BP 127/73; Ht 162.6 cm; Wt 64.9 kg
[2017-08-01 19:00] VITALS: BP 117/55
[2017-08-02 07:52] VITALS: BP 107/63
[2017-08-02 19:00] VITALS: BP 114/72
[2017-08-03 07:57] VITALS: BP 108/60
[2017-08-03 11:18] VITALS: BP 97/54
[2017-08-03 15:38] VITALS: BP 92/55
[2017-08-03 21:43] VITALS: BP 80/46
== END 2017-08-04 05:00 | DRG 951 ==
LOC: D.M2 16:42
DX: Z51.5 Encounter for palliative care (principal)